=== PATIENT | male | born 2000 | race Caucasian/White ===

== ENCOUNTER 2021-05-25 07:51 | Emergency (ER) | payer OTHER ==
[~2021-05-25] VITALS: Ht 185.4 cm; Wt 107.6 kg
[2021-05-25] MEDS ORDERED: MORPHINE 4 MG/ML 1ML VIAL/SYRINGE IV ONE (08:00)
[2021-05-25] MEDS ORDERED: ONDANSETRON 4MG/2ML VIAL IV ONE (08:00)
[2021-05-25] MEDS ORDERED: NS 1,000 ML IV ONE (08:00)
[2021-05-25] MEDS ORDERED: propofoL 200 MG/20 ML VIAL IV.PROC PRN (08:30)
[2021-05-25] MEDS ORDERED: NS 1,000 ML IV SCH (08:30)
[2021-05-25 10:35] VITALS: BP 139/64
== END 2021-05-25 10:47 | disposition home or self-care (01) ==
LOC: M ED 07:51
DX: S43.005A Unspecified dislocation of left shoulder joint, initial encounter (principal); X58.XXXA Exposure to other specified factors, initial encounter; Y92.018 Other place in single-family (private) house as the place of occurrence of the external cause
CPT/HCPCS: 23650; 73030; 73060; 93041; 94760; 96361; 96374; 96375; 99285; J2270; J2405